=== PATIENT | female | born 1990 | race Caucasian/White ===

== ENCOUNTER → 2021-01-27 | Outpatient (CLI) | payer BC ==
[~2021-01-27] MED LIST: NORTREL OR; albuterol inhaler INH
--- NOTE | 2021-01-27 17:45 | REP ---
INDICATION: N63.10 LUMP OF R BREAST. Lump in the right breast, 8 o'clock position laterally, 3 cm from the nipple. Smooth mass 4 x 2 cm. COMPARISON: No comparison breast imaging.. TECHNIQUE: Targeted right breast ultrasound. Scanning is performed from 7:00 to 9:00. FINDINGS: Heterogeneous fibroglandular background echotexture is seen. No mass is observed. No cyst is seen. No acoustic shadowing noted. IMPRESSION: BI-RADS category 1-findings. Clinical follow-up is advised. <Electronically signed by Aj García > 01/27/21 [id number]
== END ==
LOC: M WHC 15:00
PROVIDERS: ATTEND Nurse Practitioner Women's Health
DX: N63.13 Unspecified lump in the right breast, lower outer quadrant (principal)

== ENCOUNTER → 2021-02-19 | Outpatient (REF) | payer BC, MEDICAID ==
[2021-02-19 18:35] LABS: HEMATOCRIT 39.8 % (36.0-47.0); HEMOGLOBIN 12.8 g/dl (12.0-15.5); MEAN CORPUSCULAR HEMOGLOBIN 27.3 pg (27.0-33.0); MEAN CORPUSCULAR HGB CONC 32.2 g/dl (32.0-36.5); MEAN CORPUSCULAR VOLUME 84.9 fl (80.0-96.0); PLATELET COUNT, AUTOMATED 324 10^3/uL (150-450); RED BLOOD COUNT 4.69 10^6/uL (4.00-5.40); WHITE BLOOD COUNT 11.4 10^3/uL (4.0-10.0)
[2021-02-19 21:36] LABS: CHLAMYDIA DNA AMPLIFICATION NEGATIVE (NEGATIVE); GC DNA AMPLIFICATION NEGATIVE (NEGATIVE)
[2021-02-22 15:33] LABS: HEPATITIS C VIRUS ABY INDEX 0.2 INDEX (<0.8); HIV 1&2 SCREEN CENTAUR NEGATIVE (NEGATIVE)
== END ==
LOC: M PLALAB 15:13
PROVIDERS: ATTEND Advanced Practice Midwife
DX: Z36.89 Encounter for other specified antenatal screening (principal); Z3A.08 8 weeks gestation of pregnancy

== ENCOUNTER → 2021-03-08 | Outpatient (CLI) | payer OTHER, MEDICAID | LOC: M PLALAB 13:20 | PROVIDERS: ATTEND Advanced Practice Midwife | DX: Z34.81 Encounter for supervision of other normal pregnancy, first trimester (principal) ==

== ENCOUNTER → 2021-04-27 | Outpatient (CLI) | payer OTHER ==
--- NOTE | 2021-04-27 18:44 | REP ---
INDICATION: PREG 18 WKS PREG ANATOMY. COMPARISON: None. TECHNIQUE: Real-time sonographic evaluation of the gravid uterus performed. FINDINGS: Estimated gestational age is18 weeks 0 days, EDC 09/28/2021. Today's measurements indicate appropriate growth. Presentation: Breech Placenta anterior, grade 0, without evidence of placenta previa. heart rate is recorded at 157 beats per minute. Amniotic fluid is subjectively normal. Closed cervical length is measured at 6.0 cm. Biometry chart: BPD: 39 mm, 18 weeks 0 days, 48th percentile. HC: 149 mm, 18 weeks 0 days, 49th percentile AC: 123 mm, 18 weeks 0 days, 49th percentile Femur length: 27 mm, 18 weeks 3 days, 59th percentile HC to AC ratio: 1.21, normal range 1.07-1.26. Estimated weight: 225g, 53rd percentile. anatomy: Cranium: Grossly normal Lateral Ventricles/Choroid Plexus: Grossly normal Posterior Fossa/Cerebellum: Grossly normal Nose/lips/profile: Not well seen due to position Four chamber heart: Grossly normal Right ventricular outflow tract: Grossly normal Left ventricular outflow tract: Not well seen due to position Left-sided stomach: Grossly normal Kidneys: Grossly normal Bladder: Grossly normal Cord Insertion: Grossly normal 3 vessel cord: Grossly normal Spine: Grossly normal IMPRESSION: Viable single intrauterine gestation as above. <Electronically signed by Jeremias Mahtis > 04/27/21 [id number]
== END ==
LOC: M RAD 16:44
PROVIDERS: ATTEND Advanced Practice Midwife
DX: Z36.9 Encounter for antenatal screening, unspecified (principal); Z3A.18 18 weeks gestation of pregnancy

== ENCOUNTER → 2021-05-31 | Outpatient (CLI) | payer OTHER ==
--- NOTE | 2021-05-31 16:29 | REP ---
INDICATION: F/U ANATOMY. COMPARISON: Comparison obstetric sonography April 27, 2021. This showed less than optimal nose and lips and left ventricular cardiac outflow tract visualization.. TECHNIQUE: Trans abdominal obstetric sonography. FINDINGS: Scanning through the gravid uterus demonstrates a viable single intrauterine gestation in transverse, head to the maternal left lie. motion is observed and heart rate is recorded at 153 beats per minute. A anterior placenta is seen, grade 1, without evidence of placenta previa. Closed cervical length is measured at 5.7 cm transabdominally. No extrauterine abnormality is observed. Amniotic fluid is subjectively normal. heart left ventricular outflow tract view and nose and lips are still less than optimally seen. spine is less than optimally seen. This due to position.. Biometry chart: BPD 5.1 cm, 21 weeks 3 days Head circumference 20.1 cm, 22 weeks 2 days Abdominal circumference 16.9 cm, 21 weeks 6 days Femur length 3.7 cm, 21 weeks 6 days Humeral length 3.7 cm, 22 weeks 6 days HC AC ratio normal 1.19 Cephalic index 0.68 (0.70-0.86) Estimated weight 460 g, 1 lb 0 oz, 9th percentile for 22 weeks 6 days IMPRESSION: Viable single intrauterine gestation at 22 weeks 1 days by today's composite sonographic criteria. DAT by today's sonography October 03, 2021.. No complication identified. Expected gestational age estimate based on DAT of 28 September 2021 is 22 weeks 6 days. anatomic survey is still less than complete. <Electronically signed by Aj García > 05/31/21 [id number]
== END ==
LOC: M WHC 14:31
PROVIDERS: ATTEND Advanced Practice Midwife
DX: Z36.9 Encounter for antenatal screening, unspecified (principal); Z3A.22 22 weeks gestation of pregnancy

== ENCOUNTER → 2021-06-09 | Outpatient (CLI) | payer OTHER | LOC: M PLALAB 12:39 | PROVIDERS: ATTEND Advanced Practice Midwife | DX: Z36.89 Encounter for other specified antenatal screening (principal); Z3A.20 20 weeks gestation of pregnancy ==

== ENCOUNTER → 2021-06-24 | Outpatient (CLI) | payer OTHER ==
--- NOTE | 2021-06-24 17:01 | REP ---
INDICATION: F/U ANATOMY. SPECIFICALLY FOLLOW-UP FOUR-CHAMBER HEART, LEFT VENTRICULAR OUTFLOW TRACT, UPPER LIP, AND SPINE COMPARISON: 05/31/2021 TECHNIQUE: Transabdominal scanning FINDINGS: Multiple ultrasonographic images of the gravid uterus shows a single living intrauterine gestation in the cephalic presentation. Doppler interrogation of the heart shows a heart rate of 147 beats per minute. The placenta is anterior and not low-lying. The cervix measures 5.7 cm in length and is closed. The subjective amniotic fluid volume is within normal limits. BPD: 6.2 cm 25 weeks 1 day HC: 24.0 cm 26 weeks 1 day AC: 21.8 cm 26 weeks 2 days FL: 4.8 cm 26 weeks 0 days The estimated weight is 891 g which is at the 30th percentile for a 26 week 2 day gestational age. Four-chamber heart, ventricular outflow tracts, upper lip, and spine still suboptimally visualized. IMPRESSION: Single living intrauterine gestation as described above with an estimated gestational age of 25 weeks 6 days via composite criteria and an estimated date of delivery of 10/01/2021 by today's exam. anatomical screen remains incomplete as described above. Follow-up is recommended. <Electronically signed by Mau Jimenez > 06/24/21 2009
== END ==
LOC: M WHC 10:58
PROVIDERS: ATTEND Obstetrics & Gynecology
DX: Z34.92 Encounter for supervision of normal pregnancy, unspecified, second trimester (principal)

== ENCOUNTER → 2021-07-05 | Outpatient (CLI) | payer OTHER ==
[2021-07-05 15:04] LABS: HEMATOCRIT 35.9 % (36.0-47.0); MEAN CORPUSCULAR HGB CONC 33.4 g/dl (32.0-36.5); MEAN CORPUSCULAR VOLUME 89.8 fl (80.0-96.0); PLATELET COUNT, AUTOMATED 265 10^3/uL (150-450); WHITE BLOOD COUNT 10.9 10^3/uL (4.0-10.0)
[2021-07-05 16:36] LABS: GC DNA AMPLIFICATION NEGATIVE (NEGATIVE)
== END ==
LOC: M PLALAB 12:05
PROVIDERS: ATTEND Obstetrics & Gynecology
DX: Z34.92 Encounter for supervision of normal pregnancy, unspecified, second trimester (principal); Z3A.00 Weeks of gestation of pregnancy not specified

== ENCOUNTER → 2021-07-22 | Outpatient (CLI) | payer OTHER ==
--- NOTE | 2021-07-22 14:27 | REP ---
INDICATION: REPEAT ANATOMY COMPARISON: 06/24/2021 TECHNIQUE: Transabdominal obstetrical ultrasound with color Doppler evaluation. FINDINGS: Examination demonstrates a single live intrauterine in cephalic presentation. motion is identified by technologist. Placenta is noted anterior and grade 1 without evidence for placenta previa or abruption. Cervix measures 5.4 cm in length and appears closed.. Selected gestational age: 30 weeks 2 days with DAT 09/28/2021. Gestational age by current measurements 29 weeks 4 days with DAT 10/03/2021. FHR equals 144 beats per minute. ELO: 7.8 cm (8.9-23.5) Estimated weight 1424 grams (18thpercentile). Umbilical artery SD ratio: 2.24 Anatomical assessment demonstrates normal structures including heart/left ventricular outflow tract, facial features and spine. Mild bilateral renal pelviectasis within normal range.. IMPRESSION: Single live intrauterine in cephalic presentation demonstrating appropriate estimated weight. The amniotic fluid volume is measured at below range, but technologist suggest this to be positional. Correlation and short-term follow-up may be warranted. <Electronically signed by Ladarius John > 07/22/21 [id number]
== END ==
LOC: M RAD 12:58
PROVIDERS: ATTEND Advanced Practice Midwife
DX: Z34.83 Encounter for supervision of other normal pregnancy, third trimester (principal)

== ENCOUNTER → 2021-08-31 | Outpatient (REF) | payer OTHER, MEDICAID | LOC: M SFHCWAGY 13:01 | PROVIDERS: ATTEND Specialist | DX: Z34.83 Encounter for supervision of other normal pregnancy, third trimester (principal) ==

== ENCOUNTER → 2021-09-16 | Outpatient (CLI) | payer OTHER, MEDICAID ==
[~2021-09-16] MED LIST changes: +D32000CA PO; +MULTTAB20 PO; +PROAAER10 INH
== END ==
LOC: M LABSMTC 09:58
PROVIDERS: ATTEND Anesthesiology
DX: Z01.818 Encounter for other preprocedural examination (principal); Z11.52 Encounter for screening for COVID-19

== ENCOUNTER 2021-09-21 05:32 | Inpatient (IN) | payer OTHER ==
[~2021-09-21] VITALS: Ht 170.2 cm; Wt 95.0 kg
[2021-09-21] VITALS (8 sets, daily range): BP systolic 117–137; BP diastolic 67–91
--- OUTSIDE RECORDS SUMMARY | 2021-09-21 05:35 | CCD ---
Author Organization Unknown Address [address] [place] [address] Phone [phone] Care Team Providers Care Traffic Court Referee Name Role Phone [facility] 110 [phone] Allergies Code Code System Name Reaction Severity Status Onset 3640 RxNorm Doxycycline Active Medications Name Status Start Date Stop Date albuterol sulfate HFA 90 mcg/actuation a erosol inhaler INHALE 2 PUFFS BY MOUTH EVERY 4 HOURS Active N ot available amoxicillin 500 mg capsule TAKE 1 CAPSULE BY MOUTH EVERY 8 HOURS Completed 0 05/07/2021 chlorhexidine gluconate 0.12 % mouthwash RINSE WITH 1 CAPFUL 3 TIMES DAILY STARTING TOMORROW Completed 05/07/2021 hydrocodone 5 mg-acetaminophen 325 mg ta blet TAKE 1 TABLET BY MOUTH EVERY 4 TO 6 HOURS NEEDED FOR PAIN . DO NOT EXCEED 5 PER 24 HOURS Completed 05/07/2021 ibuprofen 600 mg tablet TAKE 1 TABLET BY MOUTH 4 TIMES DAILY NEEDED Completed 05/07/2021 Active Not available Vitamin D3 50 mcg (2,000 unit) capsule TAKE 1 CAPSULE BY MOUTH ONCE DAILY Active Not available Problems Name Status Onset Date Source Vitamin D Deficiency Active 05/07/2021 Anxiety Active 05/07/2021 Seasonal Allergy Active 05/07/2021 Mild Intermittent Asthma Active 05/07/2021 Gastroesophageal Reflux Disease Active 05/07/2021 Cyst of Ovary Active 05/07/2021 Left Side Sciatica Active 05/07/2021 Generalized Anxiety Disorder Active 07/29/2021 Procedures Date Name Performed by Extraction of [place] Tooth Information n ot available Myringotomy and Insertion of Short-term Tympanic Ventilation Tube Information not available Excision of Cyst of Ovary Information no t available Results Lab Results Date Name Specimen Result Interpretation Description Value Range Status Address 06/25/2021 SARS CoV 2 RdRp Gene, QL Probe, Respiratory Spec imen Nasopharyngeal Normal Sars-cov-2 negative negative Final [facility]: [address] [facility] 06/09/2021 Vitamin D, 25-Hydroxy, Total, Serum Low Total 25(Oh) Vitamin D 26.6 NG/mL 30.0-100.0 NG/mL Final [facility] Ce nter: [address] [facility] Past Encounters 07/28/2021 Generalized Anxiety Disorder Kiara Lopez, [facility]: [address] [facility], [facility] [address], [place] [address], Ph. 07/19/2021 Generalized Anxiety Disorder Kiara Lopez, [facility]: [address] [facility], [facility] [address], [place] [address], Ph. 06/25/2021 Exposure to SARS-CoV-2 Nima Alegria MD: [address] [place] [address], Ph. 06/10/2021 Administration of SARS-CoV-2 Antigen Vaccine Nima Alegria MD: [address] [place] [phone], Ph. 05/19/2021 Administration of SARS-CoV-2 Antigen Vaccine Nima Alegria MD: [address] [place] [address], Ph. 05/07/2021 Patient New to Provider; Mild Intermittent Asthma; Vitamin D Deficiency; Anxiety; Kavita Chirinos MD: [address] [place] [phone], Ph. Social History Tobacco Smoking Status Never Smoker Vaccine List Vaccine Type COVID-19, mRNA, LNP-S, PF, 30 mcg/0.3 mL dose .3 mL 10.3 mL Tdap 01/29/2018 Plan of Care Reminders Provider Appointments None recorded. Lab None recorded. Referral None recorded. Procedures None recorded. Surgeries None recorded. Imaging None recorded. Vitals Height Weight BMI Blood Pressure 67 in 176 lbs 8 oz 27.6 kg/m2 124/76 mm[Hg]
--- OUTSIDE RECORDS SUMMARY | 2021-09-21 05:35 | CCD ---
Author Organization Unknown Address [address] [place] [address] Phone [phone] Care Team Providers Care Drafter Electrical Name Role Phone [facility] 110 [phone] Allergies Code Code System Name Reaction Severity [...] Procedures Date Name Performed by Extraction of [place] Tooth Information n ot available Myringotomy and Insertion of Short-term Tympanic Ventilation Tube Information not available Excision of Cyst of Ovary Information no t available Results Lab Results Date Name Specimen Result Interpretation Description Value Range Status Address 06/25/2021 SARS CoV 2 RdRp Gene, QL Probe, Respiratory Spec imen Nasopharyngeal Normal Sars-cov-[address] [facility]: [address] [facility] 06/09/2021 Vitamin D, 25-Hydroxy, Total, Serum Low Total 25(Oh) Vitamin D 26.6 NG/mL 30.0-100.0 NG/mL Final [facility] Ce nter: [address] [facility] Past Encounters 07/28/2021 Generalized Anxiety Disorder Kiara Lopez, [facility] [place] [facility]: [address] [facility], [facility] [address], [place] [address], Ph. 07/19/2021 Generalized Anxiety Disorder Kiara Lopez, [facility]: [address] [facility], [facility] [address], [place] [address], Ph. 06/25/2021 Exposure to SARS-CoV-2 Nima Alegria MD: [address] [place] [address], Ph. 06/10/2021 Administration of SARS-CoV-2 Antigen Vaccine Nima Alegria MD: [address] [place] [phone], Ph. 05/19/2021 Administration of SARS-CoV-2 Antigen Vaccine Nima Alegria MD: [address] [place] [address], Ph. 05/07/2021 Patient New to Provider; Mild Intermittent Asthma; Vitamin D Deficiency; Anxiety; Kavita Chirinos MD: [address] [place] [phone], Ph. Social History Tobacco Smoking Status Never [...]
--- OUTSIDE RECORDS SUMMARY | 2021-09-21 05:35 | CCD ---
Author Organization Unknown Address [address] [place] [address] Phone [phone] Care Team Providers Care Mastercam Programmer Name Role Phone [facility] 110 [phone] Allergies Code Code System Name Reaction Severity [...] Active 05/07/2021 Generalized Anxiety Disorder Active 07/29/2021 Depressive Disorder Active 08/23/2021 Procedures Date Name Performed by Extraction of [place] Tooth Information n ot available Myringotomy and Insertion of Short-term Tympanic Ventilation Tube Information not available Excision of Cyst of Ovary Information no t available Results Lab Results Date Name Specimen Result Interpretation Description Value Range Status Address 06/25/2021 SARS CoV 2 RdRp Gene, QL Probe, Respiratory Spec imen Nasopharyngeal Normal Sars-cov-2 negative negative Final [facility]: [address] [facility] 06/09/2021 Vitamin D, 25-Hydroxy, Total, Serum Low Total 25(Oh) Vitamin D 26.6 NG/mL 30.0-100.0 NG/mL Final [facility] Ce nter: [address] [facility] Past Encounters 08/23/2021 Generalized Anxiety Disorder; Depressive Disorder Kiara Lopez, [facility]: [address] [facility], [facility] [address], [place] [address], Ph. 07/28/2021 Generalized Anxiety Disorder Kiara Lopez [facility]: [address] [facility], [facility] [address], [place] [address], Ph. 07/19/2021 [facility] [address] [facility], [facility] [address], [place] [address], Ph. 06/25/2021 Exposure to SARS-CoV-2 Nima Alegria MD: [address] [place] [phone], Ph. 06/10/2021 Administration of SARS-CoV-2 Antigen Vaccine Nima Alegria MD: [address] [place] [phone], Ph. 05/19/2021 Administration of SARS-CoV-2 Antigen Vaccine Nima Alegria MD: [address] [place] [phone], Ph. 05/07/2021 Patient New to Provider; Mild Intermittent Asthma; Vitamin D Deficiency; Anxiety; Kavita Chirinos MD: [address] [place] [phone], Ph. Social History Tobacco Smoking Status Never Smoker Vaccine List Vaccine Type COVID-19, mRNA, LNP-S, PF, 30 mcg/0.3 mL dose .3 mL .3 mL Tdap 01/29/2018 Plan of Care Reminders Provider Appointments None recorded. Lab None recorded. Referral None recorded. Procedures None recorded. Surgeries None recorded. Imaging None recorded. Vitals Height Weight BMI Blood Pressure 67 in 176 lbs 8 oz 27.6 kg/m2 124/76 mm[Hg]
--- OUTSIDE RECORDS SUMMARY | 2021-09-21 05:35 | CCD ---
Author Organization Unknown Address [address] [place] [address] Phone [phone] Care Team Providers Care Senior Qa Automation Engineer Name Role Phone [facility] 110 [phone] Allergies Code Code System Name Reaction [...] Procedures Date Name Performed by Extraction of [place] Tooth Information n ot available Myringotomy and Insertion of Short-term Tympanic Ventilation Tube Information not available Excision of Cyst of Ovary Information no t available Results Lab Results Date Name Specimen Result Interpretation Description Value Range Status Address 06/25/2021 SARS CoV 2 RdRp Gene, QL Probe, Respiratory Spec imen Nasopharyngeal Normal Sars-cov-2 negative negative Final [facility]: [address] [facility] 06/09/2021 Vitamin D, 25-Hydroxy, Total, Serum Low Total 25(Oh) Vitamin D 26.6 NG/mL 30.0-100.0 NG/mL Final [facility] Ce nter: [address] [facility] Past Encounters 09/07/2021 [facility]; [facility] [address] [facility], [facility] [address], [place] [address], Ph. 08/23/2021 Generalized Anxiety Disorder; [facility] [address] [facility], [facility] [address], [place] [address], Ph. 07/28/2021 [facility] [address] [facility], [facility] [address], [place] [address], Ph. 07/19/2021 [facility] [address] [facility], [facility] [address], [place] [address], Ph. 06/25/2021 Exposure to SARS-CoV-2 Nima Alegria MD: [address] [place] [phone], Ph. 06/10/2021 Administration of SARS-CoV-2 Antigen Vaccine Nima Alegria MD: [address] [place] [phone], Ph. 05/19/2021 Administration of SARS-CoV-2 Antigen Vaccine Nima Alegria MD: [address] [place] [phone], Ph. 05/07/2021 Patient New to Provider; Mild Intermittent Asthma; Vitamin D Deficiency; Anxiety; Kavita Chirinos MD: [address] [place] [phone], Ph. Social History Tobacco Smoking Status Never [...]
--- OUTSIDE RECORDS SUMMARY | 2021-09-21 05:35 | CCD ---
Author Organization Unknown Address [address] [place] [address] Phone [phone] Care Team Providers Care Stem Roller Name Role Phone [facility] 110 [phone] Allergies Code Code System Name Reaction Severity [...] Procedures Date Name Performed by Extraction of [place] Tooth Information n ot available Myringotomy and Insertion of Short-term Tympanic Ventilation Tube Information not available Excision of Cyst of Ovary Information no t available Results Lab Results Date Name Specimen Result Interpretation Description Value Range Status Address 06/25/2021 SARS CoV 2 RdRp Gene, QL Probe, Respiratory Spec imen Nasopharyngeal Normal Sars-cov-2 negative negative Final [facility]: [address] [facility] 06/09/2021 Vitamin D, 25-Hydroxy, Total, Serum Low Total 25(Oh) Vitamin D 26.6 NG/mL 30.0-100.0 NG/mL Final [facility] Ce nter: [address] [facility] Past Encounters 07/28/2021 Generalized Anxiety Disorder Kiara Lopez, [facility]: [address] [facility], [facility] [address], [place] [address], Ph. 07/19/2021 Generalized Anxiety Disorder Kiara Lopez, [facility]: [address] [facility], [facility] [address], [place] [address], Ph. 06/25/2021 Exposure to SARS-CoV-2 Nima Alegria MD: [address] [place] [address], Ph. 06/10/2021 Administration of SARS-CoV-2 Antigen Vaccine Nima Alegria MD: [address] [place] [phone], Ph. 05/19/2021 Administration of SARS-CoV-2 Antigen Vaccine Nima Alegria MD: [address] [place] [address], Ph. 05/07/2021 Patient New to Provider; Mild Intermittent Asthma; Vitamin D Deficiency; Anxiety; Kavita Chirinos MD: [address] [place] [phone], Ph. Social History Tobacco Smoking Status Never [...]
--- OUTSIDE RECORDS SUMMARY | 2021-09-21 05:36 | CCD ---
Author Author [facility] Organization [facility] Address Unknown Phone Unavailable Care Team Providers Care Asset Protection Agent Name Role Phone Kristan Alegria MD Unavailable Unavailable Kristan Alegria MD Unavailable Unavailable Kristan Alegria MD Unavailable Unavailable Kristan Alegria MD Unavailable Unavailable Kristan Alegria MD Unavailable Unavailable Kristan Alegria MD Unavailable Unavailable Kristan Alegria MD Unavailable Unavailable Kristan Alegria MD Unavailable Unavailable Kristan Alegria MD Unavailable Unavailable Kristan Alegria MD Unavailable Unavailable Kristan Alegria MD Unavailable Unavailable Kristan Alegria MD Unavailable Unavailable Kristan Alegria MD Unavailable Unavailable Kristan Alegria MD Unavailable Unavailable Kristan Alegria MD Unavailable Unavailable Kristan Alegria MD Unavailable Unavailable Kristan Alegria MD Unavailable Unavailable Kristan Alegria MD Unavailable Unavailable Kristan Alegria MD Unavailable Unavailable Kristan Alegria MD Unavailable Unavailable Kristan Alegria MD Unavailable Unavailable Kristan Alegria MD Unavailable Unavailable Kristan Alegria MD Unavailable Unavailable Kristan Alegria MD Unavailable Unavailable Kristan Alegria MD Unavailable Unavailable Kristan Alegria MD Unavailable Unavailable Kristan Alegria MD Unavailable Unavailable Kristan Alegria MD Unavailable Unavailable Kristan Alegria MD Unavailable Unavailable Kristan Alegria MD Unavailable Unavailable Kristan Alegria MD Unavailable Unavailable Kristan Alegria MD Unavailable Unavailable Kristan Alegria MD Unavailable Unavailable Kristan Alegria MD Unavailable Unavailable Kristan Alegria MD Unavailable Unavailable Kristan Alegria MD Unavailable Unavailable Kristan Alegria MD Unavailable Unavailable Kristan Alegria MD Unavailable Unavailable Kristan Alegria MD Unavailable Unavailable Kristan Alegria MD Unavailable Unavailable Kristan Alegria MD Unavailable Unavailable Kristan Alegria MD Unavailable Unavailable AlegriaKristan MD Unavailable Unavailable AlegriaKristan MD Unavailable Unavailable AlegriaKristan MD Unavailable Unavailable Alegria, Kristan Herring MD Unavailable Unavailable AlegriaKristan MD Unavailable Unavailable AlegriaKristan MD Unavailable Unavailable AlegriaKristan MD Unavailable Unavailable Kristan Alegria MD Unavailable Unavailable Kristan Alegria MD Unavailable Unavailable AlegriaKristan MD Unavailable Unavailable AlegriaKristan MD Unavailable Unavailable AlegriaKristan MD Unavailable Unavailable Alegria, Kristan Herring MD Unavailable Unavailable AlegriaKristan MD Unavailable Unavailable Alegria, Kristan Herring MD Unavailable Unavailable AlegriaKristan MD Unavailable Unavailable AlegriaKristan MD Unavailable Unavailable Kristan Alegria MD Unavailable Unavailable AlegriaKristan MD Unavailable Unavailable AlegriaKristan MD Unavailable Unavailable Alegria, Kristan Herring MD Unavailable Unavailable Alegria, Kristan Herring MD Unavailable Unavailable AlegriaKristan MD Unavailable Unavailable Alegria, Kristan Herring MD Unavailable Unavailable Kristan Alegria MD Unavailable Unavailable Kristan Alegria MD Unavailable Unavailable Kristan Alegria MD Unavailable Unavailable Kristan Alegria MD Unavailable Unavailable AlegriaKristan MD Unavailable Unavailable AlegriaKristan MD Unavailable Unavailable AlegriaKristan MD Unavailable Unavailable AlegriaKristan MD Unavailable Unavailable AlegriaKristan MD Unavailable Unavailable Kristan Alegria MD Unavailable Unavailable Kristan Alegria MD Unavailable Unavailable Kristan Alegria MD Unavailable Unavailable Kristan Alegria MD Unavailable Unavailable AlegriaKristan MD Unavailable Unavailable AlegriaKristan MD Unavailable Unavailable Kristan Alegria MD Unavailable Unavailable Kristan Alegria MD Unavailable Unavailable Kristan Alegria MD Unavailable Unavailable Kristan Alegria MD Unavailable Unavailable Kristan Alegria MD Unavailable Unavailable Kristan Alegria MD Unavailable Unavailable AlegriaKristan MD Unavailable Unavailable AlegriaKristan MD Unavailable Unavailable AlegriaKristan MD Unavailable Unavailable AlegriaKristan MD Unavailable Unavailable Kristan Alegria MD Unavailable Unavailable Kristan Alegria MD Unavailable Unavailable Kiara Lopez Unavailable [phone] Candis, Reina Unavailable Unavailable Candis, Reina Unavailable Unavailable Candis, Reina Unavailable Unavailable Candis, Reina Unavailable Unavailable Candis, Reina Unavailable Unavailable Candis, Reina Unavailable Unavailable Candis, Reina Unavailable Unavailable Candis, Reina Unavailable Unavailable Candis, Reina Unavailable Unavailable Candis, Reina Unavailable Unavailable Candis, Reina Unavailable Unavailable Candis, Reina Unavailable Unavailable Candis, Reina Unavailable Unavailable Candis, Reina Unavailable Unavailable Candis, Reina Unavailable Unavailable Candis, Reina Unavailable Unavailable Candis, Reina Unavailable Unavailable Candis, Reina Unavailable Unavailable Candis, Reina Unavailable Unavailable Candis, Reina Unavailable Unavailable Candis, Reina Unavailable Unavailable Candis, Reina Unavailable Unavailable Candis, Reina Unavailable Unavailable Candis, Reina Unavailable Unavailable Candis, Reina Unavailable Unavailable Candis, Reina Unavailable Unavailable Re-disclosure Warning The records that you are about to access may contain information from federally-assisted alcohol or drug abuse programs. If such information is present, then the following federally mandated warning applies: This information has been disclosed to you from records protected by federal confidentiality rules (42 CFR part 2). The federal rules prohibit you from making any further disclosure of this information unless further disclosure is expressly permitted by the written consent of the person to whom it pertains or as otherwise permitted by 42 CFR part 2. A general authorization for the release of medical or other information is NOT sufficient for this purpose. The Federal rules restrict any use of the information to criminally investigate or prosecute any alcohol or drug abuse patient.The records that you are about to access may contain highly sensitive health information, the redisclosure of which is protected by Article 27-F of the [facility] Public Health law. If you continue you may have access to information: Regarding HIV / AIDS; Provided by facilities licensed or operated by the [facility] Office of Mental Health; or Provided by the [facility] Office for People With Developmental Disabilities. If such information is present, then the following [facility] mandated warning applies: This information has been disclosed to you from confidential records which are protected by state law. State law prohibits you from making any further disclosure of this information without the specific written consent of the person to whom it pertains, or as otherwise permitted by law. Any unauthorized further disclosure in violation of state law may result in a fine or mcc sentence or both. A general authorization for the release of medical or other information is NOT sufficient authorization for further disc losure. Allergies and Adverse Reactions Type Description Substance Reaction Status Data Source(s ) Propensity to adverse reactions NO KNOWN ALLERGIES NO KNOWN ALLERGIES [facility] Family History Family Member Name Family Member Gender Family Member Status Date o f Status Description Data Source(s) Unknown Unknown Problem [facility] ([facility] Encounters Encounter Providers Location Date Indications Data Source(s ) Kiara Lopez [facility]: [address], [place] [address], Ph. Attender: Kiara Lopez [facility] Medical 09/07/2021 12:00:00 AM EDT [place] ([facility]) Kiara Lopez [facility]: [address], [place] [address], Ph. Attender: Kiara Lopez [facility] Medical 08/23/2021 12:00:00 AM EDT [place] ([facility]) Kiara Lopez [facility]: [address], [place] [address], Ph. Attender: Kiara Lopez [facility] Medical 08/23/2021 12:00:00 AM EDT [place] ([facility]) Kiara Lopez [facility]: [address], [place] [address], Ph. Attender: Kiara Lopez [facility] Medical 07/28/2021 12:00:00 AM EDT [place] ([facility]) Kiara Lopez LMS[facility]: [address], [place] [address], Ph. Attender: Kiara Lopez [facility] Medical 07/28/2021 12:00:00 AM EDT [place] ([facility]) Kiara Lopez [facility]: [address], [place] [address], Ph. Attender: Kiara Lopez [facility] Medical 07/28/2021 12:00:00 AM EDT [place] ([facility]) Kiara Lopez, [facility]: [address], [place] [address], Ph. Attender: Kiara Lopez [facility] Medical 07/28/2021 12:00:00 AM EDT [place] ([facility]) Kiara Lopez [employer] [employer]: [address], [place] [address], Ph. Attender: Kiara Lopez [facility] Medical 07/28/2021 12:00:00 AM EDT [place] ([facility]) Kiara Lopez, [facility]: [address], [place] [address], Ph. Attender: Kiara Lopez [facility] Medical 07/19/2021 12:00:00 AM EDT [place] ([facility]) Kiara Lopez, [facility]: [address], [place] [address], Ph. Attender: Kiara Lopez [facility] Medical 07/19/2021 12:00:00 AM EDT [place] ([facility]) Kiara Lopez [facility]: [address], [place] [address], Ph. Attender: Kiara Lopez [facility] Medical 07/19/2021 12:00:00 AM EDT [place] ([facility]) Kiara Lopez, [facility]: [address], [place] [address], Ph. Attender: Kiara Lopez [facility] Medical 07/19/2021 12:00:00 AM EDT [place] ([facility]) Kiara Lopez, [facility]: [address], [place] [address], Ph. Attender: Kiara Lopez [facility] Medical 07/19/2021 12:00:00 AM EDT [place] ([facility]) Nima Alegria MD: [address] [place] [address], Ph. Attender: Nima Alegria MD [facility] Medical 06/25/2021 12:00:00 AM EDT [place] ([facility]) Nima Alegria MD: [address] [place] [address], Ph. Attender: Nima Alegria MD [facility] Medical 06/25/2021 12:00:00 AM EDT [place] ([facility]) Nima Alegria MD: [address] [place] [address], Ph. Attender: Nima Alegria MD [facility] Medical 06/25/2021 12:00:00 AM EDT [place] ([facility]) Nima Alegria MD: [address] [place] [address], Ph. Attender: Nima Alegria MD [facility] Medical 06/25/2021 12:00:00 AM EDT [place] ([facility]) Nima Alegria MD: [address] [place] [address], Ph. Attender: Nima Alegria MD [facility] Medical 06/25/2021 12:00:00 AM EDT [place] ([facility]) Nima Alegria MD: [address] [place] [address], Ph. Attender: Nima Alegria MD [facility] Medical 06/10/2021 12:00:00 AM EDT [place] ([facility]) Nima Alegria MD: [address] [place] [address], Ph. Attender: Nima Alegria MD [facility] Medical 06/10/2021 12:00:00 AM EDT [place] ([facility]) Nima Alegria MD: [address] [place] [address], Ph. Attender: Nima Alegria MD [facility] Medical 06/10/2021 12:00:00 AM EDT [place] ([facility]) Nima Alegria MD: [address] [place] [address], Ph. Attender: Nima Alegria MD [facility] Medical 06/10/2021 12:00:00 AM EDT [place] ([facility]) Nima Alegria MD: [address] [place] [address], Ph. Attender: Nima Alegria MD [facility] Medical 06/10/2021 12:00:00 AM EDT [place] ([facility]) Nima Alegria MD: [address] [place] [address], Ph. Attender: Nima Alegria MD [facility] Medical 05/19/2021 12:00:00 AM EDT [place] ([facility]) Nima Alegria MD: [address] [place] [address], Ph. Attender: Nima Alegria MD [facility] Medical 05/19/2021 12:00:00 AM EDT [place] ([facility]) Nima Alegria MD: [address] [place] [address], Ph. Attender: Nima Alegria MD [facility] Medical 05/19/2021 12:00:00 AM EDT [place] ([facility]) Nima Alegria MD: [address] [place] [address], Ph. Attender: Nima Alegria MD [facility] Medical 05/19/2021 12:00:00 AM EDT [place] ([facility]) Nima Alegria MD: [address] [place] [address], Ph. Attender: Nima Alegria MD [facility] Medical 05/19/2021 12:00:00 AM EDT [place] ([facility]) Nima Alegria MD: [address] [place] [address], Ph. Attender: Nima Alegria MD [facility] Medical 05/19/2021 12:00:00 AM EDT [place] ([facility]) Kavita Chirinos MD: [address], [place] [address], Ph. Attender: Kavita Chirinos [facility] Medical 05/07/2021 12:00:00 AM EDT [place] ([facility]) Kavita Chirinos MD: [address], [place] [address], Ph. Attender: Kavita Chirinos [facility] Medical 05/07/2021 12:00:00 AM EDT [place] ([facility]) Kavita Chirinos MD: [address], [place] [address], Ph. Attender: Kavita Chirinos [facility] Medical 05/07/2021 12:00:00 AM EDT [facility]) Kavita Chirinos MD: [address], [place] [address], Ph. Attender: Kavita Chirinos [facility] Medical 05/07/2021 12:00:00 AM EDT [facility]) Kavita Chirinos MD: [address], [place] [address], Ph. Attender: Kavita Chirinos [facility] Medical 05/07/2021 12:00:00 AM EDT [facility]) Kavita Chirinos MD: [address], [place] [address], Ph. Attender: Kavita Chirinos [facility] Medical 05/07/2021 12:00:00 AM EDT [facility]) Kavita Chirinos MD: [address], [place] [address], Ph. Attender: Kavita Chirinos [facility] Medical 05/07/2021 12:00:00 AM EDT [facility]) Immunizations Vaccine Date Status Description Data Source(s) COVID-19, mRNA, LNP-S, PF, 30 mcg/0.3 mL dose 06/10/2021 01: 44:25 PM EDT completed .3 mL [place] ([facility]) COVID-19, mRNA, LNP-S, PF, 30 mcg/0.3 mL dose 06/10/2021 01: 44:25 PM EDT completed .3 mL [place] ([facility]) COVID-19, mRNA, LNP-S, PF, 30 mcg/0.3 mL dose 06/10/2021 01: 44:25 PM EDT completed .3 mL [place] ([facility]) COVID-19, mRNA, LNP-S, PF, 30 mcg/0.3 mL dose 06/10/2021 01: 44:25 PM EDT completed .3 mL [place] ([facility]) COVID-19, mRNA, LNP-S, PF, 30 mcg/0.3 mL dose 06/10/2021 01: 44:25 PM EDT completed .3 mL [place] ([facility]) COVID-19, mRNA, LNP-S, PF, 30 mcg/0.3 mL dose 05/19/2021 11: 35:59 AM EDT completed .3 mL [place] ([facility]) COVID-19, mRNA, LNP-S, PF, 30 mcg/0.3 mL dose 05/19/2021 11: 35:59 AM EDT completed .3 mL [place] ([facility]) COVID-19, mRNA, LNP-S, PF, 30 mcg/0.3 mL dose 05/19/2021 11: 35:59 AM EDT completed .3 mL [place] ([facility]) COVID-19, mRNA, LNP-S, PF, 30 mcg/0.3 mL dose 05/19/2021 11: 35:59 AM EDT completed .3 mL [place] ([facility]) COVID-19, mRNA, LNP-S, PF, 30 mcg/0.3 mL dose 05/19/2021 11: 35:59 AM EDT completed .3 mL [place] ([facility]) COVID-19, mRNA, LNP-S, PF, 30 mcg/0.3 mL dose 05/19/2021 11: 35:59 AM EDT completed .3 mL [place] ([facility]) Medications Medication Brand Name Start Date Product Form Dose Route Admi nistrative Instructions Pharmacy Instructions Status Indications Reaction Description Data Source(s) chlorhexidine gluconate 1.2 MG/ML Mouthw johann chlorhexidine gluconate 0.12 % mouthwash RINSE WITH 1 CAPFUL 3 TIMES DAILY STARTING TOMORROW chlorhexidine gluconate 0.12 % mouthwash RINSE WITH 1 CAPFUL 3 TIMES DAILY STARTING TOMORROW completed chlorhexidine gluconate 1.2 MG/ML Mouthwash [place] ([facility]) Acetaminophen 325 MG / Hydrocodone Mayito trate 5 MG Oral Tablet hydrocodone 5 mg- acetaminophen 325 mg tablet TAKE 1 TABLET BY MOUTH EVERY 4 TO 6 HOURS NEEDED FOR PAIN . DO NOT EXCEED 5 PER 24 HOURS hydrocodone 5 mg-acetaminophen 325 mg tablet TAKE 1 TABLET BY MOUTH EVERY 4 TO 6 HOURS NEEDED FOR PAIN . DO NOT EXCEED 5 PER 24 HOURS completed acetaminophen 325 MG / hydrocodone bitartrate 5 MG Oral Tablet [place] ([facility]) chlorhexidine gluconate 1.2 MG/ML Mouthw johann chlorhexidine gluconate 0.12 % mouthwash RINSE WITH 1 CAPFUL 3 TIMES DAILY STARTING TOMORROW chlorhexidine gluconate 0.12 % mouthwash RINSE WITH 1 CAPFUL 3 TIMES DAILY STARTING TOMORROW completed chlorhexidine gluconate 1.2 MG/ML Mouthwash [place] ([facility]) Amoxicillin 500 MG Oral Capsule amoxicil fredis 500 mg capsule TAKE 1 CAPSULE BY MOUTH EVERY 8 HOURS amoxicillin 500 mg capsule TAKE 1 CAPSUL E BY MOUTH EVERY 8 HOURS completed amoxicillin 500 MG Oral Capsule [place] ([facility]) Acetaminophen 325 MG / Hydrocodone Mayito trate 5 MG Oral Tablet hydrocodone 5 mg- acetaminophen 325 mg tablet TAKE 1 TABLET BY MOUTH EVERY 4 TO 6 HOURS NEEDED FOR PAIN . DO NOT EXCEED 5 PER 24 HOURS hydrocodone 5 mg-acetaminophen 325 mg tablet TAKE 1 TABLET BY MOUTH EVERY 4 TO 6 HOURS NEEDED FOR PAIN . DO NOT EXCEED 5 PER 24 HOURS completed acetaminophen 325 MG / hydrocodone bitartrate 5 MG Oral Tablet [place] ([facility]) Ibuprofen 600 MG Oral Tablet ibuprofen 6 00 mg tablet TAKE 1 TABLET BY MOUTH 4 TIMES DAILY NEEDED ibuprofen 600 mg tablet TAKE 1 TABLET BY MOUTH 4 TIMES DAILY NEEDED completed ibupro fen 600 MG Oral Tablet [place] ([facility]) chlorhexidine gluconate 1.2 MG/ML Mouthw johann chlorhexidine gluconate 0.12 % mouthwash RINSE WITH 1 CAPFUL 3 TIMES DAILY STARTING TOMORROW chlorhexidine gluconate 0.12 % mouthwash RINSE WITH 1 CAPFUL 3 TIMES DAILY STARTING TOMORROW completed chlorhexidine gluconate 1.2 MG/ML Mouthwash [place] ([facility]) Amoxicillin 500 MG Oral Capsule amoxicil fredis 500 mg capsule TAKE 1 CAPSULE BY MOUTH EVERY 8 HOURS amoxicillin 500 mg capsule TAKE 1 CAPSUL E BY MOUTH EVERY 8 HOURS completed amoxicillin 500 MG Oral Capsule [place] ([facility]) Amoxicillin 500 MG Oral Capsule amoxicil fredis 500 mg capsule TAKE 1 CAPSULE BY MOUTH EVERY 8 HOURS amoxicillin 500 mg capsule TAKE 1 CAPSUL E BY MOUTH EVERY 8 HOURS completed amoxicillin 500 MG Oral Capsule [place] ([facility]) chlorhexidine gluconate 1.2 MG/ML Mouthw johann chlorhexidine gluconate 0.12 % mouthwash RINSE WITH 1 CAPFUL 3 TIMES DAILY STARTING TOMORROW chlorhexidine gluconate 0.12 % mouthwash RINSE WITH 1 CAPFUL 3 TIMES DAILY STARTING TOMORROW completed chlorhexidine gluconate 1.2 MG/ML Mouthwash [place] ([facility]) Acetaminophen 325 MG / Hydrocodone Mayito trate 5 MG Oral Tablet hydrocodone 5 mg- acetaminophen 325 mg tablet TAKE 1 TABLET BY MOUTH EVERY 4 TO 6 HOURS NEEDED FOR PAIN . DO NOT EXCEED 5 PER 24 HOURS hydrocodone 5 mg-acetaminophen 325 mg tablet TAKE 1 TABLET BY MOUTH EVERY 4 TO 6 HOURS NEEDED FOR PAIN . DO NOT EXCEED 5 PER 24 HOURS completed acetaminophen 325 MG / hydrocodone bitartrate 5 MG Oral Tablet [place] ([facility]) chlorhexidine gluconate 1.2 MG/ML Mouthw johann chlorhexidine gluconate 0.12 % mouthwash RINSE WITH 1 CAPFUL 3 TIMES DAILY STARTING TOMORROW chlorhexidine gluconate 0.12 % mouthwash RINSE WITH 1 CAPFUL 3 TIMES DAILY STARTING TOMORROW completed chlorhexidine gluconate 1.2 MG/ML Mouthwash [place] ([facility]) Ibuprofen 600 MG Oral Tablet ibuprofen 6 00 mg tablet TAKE 1 TABLET BY MOUTH 4 TIMES DAILY NEEDED ibuprofen 600 mg tablet TAKE 1 TABLET BY MOUTH 4 TIMES DAILY NEEDED completed ibupro fen 600 MG Oral Tablet [place] ([facility]) Ibuprofen 600 MG Oral Tablet ibuprofen 6 00 mg tablet TAKE 1 TABLET BY MOUTH 4 TIMES DAILY NEEDED ibuprofen 600 mg tablet TAKE 1 TABLET BY MOUTH 4 TIMES DAILY NEEDED completed ibupro fen 600 MG Oral Tablet [place] ([facility]) Ibuprofen 600 MG Oral Tablet ibuprofen 6 00 mg tablet TAKE 1 TABLET BY MOUTH 4 TIMES DAILY NEEDED ibuprofen 600 mg tablet TAKE 1 TABLET BY MOUTH 4 TIMES DAILY NEEDED completed ibupro fen 600 MG Oral Tablet [place] ([facility]) Amoxicillin 500 MG Oral Capsule amoxicil fredis 500 mg capsule TAKE 1 CAPSULE BY MOUTH EVERY 8 HOURS amoxicillin 500 mg capsule TAKE 1 CAPSUL E BY MOUTH EVERY 8 HOURS completed amoxicillin 500 MG Oral Capsule [place] ([facility]) chlorhexidine gluconate 1.2 MG/ML Mouthw johann chlorhexidine gluconate 0.12 % mouthwash RINSE WITH 1 CAPFUL 3 TIMES DAILY STARTING TOMORROW chlorhexidine gluconate 0.12 % mouthwash RINSE WITH 1 CAPFUL 3 TIMES DAILY STARTING TOMORROW completed chlorhexidine gluconate 1.2 MG/ML Mouthwash [place] ([facility]) Amoxicillin 500 MG Oral Capsule amoxicil fredis 500 mg capsule TAKE 1 CAPSULE BY MOUTH EVERY 8 HOURS amoxicillin 500 mg capsule TAKE 1 CAPSUL E BY MOUTH EVERY 8 HOURS completed amoxicillin 500 MG Oral Capsule [place] ([facility]) Acetaminophen 325 MG / Hydrocodone Mayito trate 5 MG Oral Tablet hydrocodone 5 mg- acetaminophen 325 mg tablet TAKE 1 TABLET BY MOUTH EVERY 4 TO 6 HOURS NEEDED FOR PAIN . DO NOT EXCEED 5 PER 24 HOURS hydrocodone 5 mg-acetaminophen 325 mg tablet TAKE 1 TABLET BY MOUTH EVERY 4 TO 6 HOURS NEEDED FOR PAIN . DO NOT EXCEED 5 PER 24 HOURS completed acetaminophen 325 MG / hydrocodone bitartrate 5 MG Oral Tablet [place] ([facility]) Ibuprofen 600 MG Oral Tablet ibuprofen 6 00 mg tablet TAKE 1 TABLET BY MOUTH 4 TIMES DAILY NEEDED ibuprofen 600 mg tablet TAKE 1 TABLET BY MOUTH 4 TIMES DAILY NEEDED completed ibupro fen 600 MG Oral Tablet [place] ([facility]) Acetaminophen 325 MG / Hydrocodone Mayito trate 5 MG Oral Tablet hydrocodone 5 mg- acetaminophen 325 mg tablet TAKE 1 TABLET BY MOUTH EVERY 4 TO 6 HOURS NEEDED FOR PAIN . DO NOT EXCEED 5 PER 24 HOURS hydrocodone 5 mg-acetaminophen 325 mg tablet TAKE 1 TABLET BY MOUTH EVERY 4 TO 6 HOURS NEEDED FOR PAIN . DO NOT EXCEED 5 PER 24 HOURS completed acetaminophen 325 MG / hydrocodone bitartrate 5 MG Oral Tablet [facility] ([facility]) Acetaminophen 325 MG / Hydrocodone Mayito trate 5 MG Oral Tablet hydrocodone 5 mg- acetaminophen 325 mg tablet TAKE 1 TABLET BY MOUTH EVERY 4 TO 6 HOURS NEEDED FOR PAIN . DO NOT EXCEED 5 PER 24 HOURS hydrocodone 5 mg-acetaminophen 325 mg tablet TAKE 1 TABLET BY MOUTH EVERY 4 TO 6 HOURS NEEDED FOR PAIN . DO NOT EXCEED 5 PER 24 HOURS completed acetaminophen 325 MG / hydrocodone bitartrate 5 MG Oral Tablet [place] ([facility]) chlorhexidine gluconate 1.2 MG/ML Mouthw johann chlorhexidine gluconate 0.12 % mouthwash RINSE WITH 1 CAPFUL 3 TIMES DAILY STARTING TOMORROW chlorhexidine gluconate 0.12 % mouthwash RINSE WITH 1 CAPFUL 3 TIMES DAILY STARTING TOMORROW completed chlorhexidine gluconate 1.2 MG/ML Mouthwash [facility] ([facility]) Acetaminophen 325 MG / Hydrocodone Mayito trate 5 MG Oral Tablet hydrocodone 5 mg- acetaminophen 325 mg tablet TAKE 1 TABLET BY MOUTH EVERY 4 TO 6 HOURS NEEDED FOR PAIN . DO NOT EXCEED 5 PER 24 HOURS hydrocodone 5 mg-acetaminophen 325 mg tablet TAKE 1 TABLET BY MOUTH EVERY 4 TO 6 HOURS NEEDED FOR PAIN . DO NOT EXCEED 5 PER 24 HOURS completed acetaminophen 325 MG / hydrocodone bitartrate 5 MG Oral Tablet [facility] ([facility]) Ibuprofen 600 MG Oral Tablet ibuprofen 6 00 mg tablet TAKE 1 TABLET BY MOUTH 4 TIMES DAILY NEEDED ibuprofen 600 mg tablet TAKE 1 TABLET BY MOUTH 4 TIMES DAILY NEEDED completed ibupro fen 600 MG Oral Tablet [place] ([facility]) Amoxicillin 500 MG Oral Capsule amoxicil fredis 500 mg capsule TAKE 1 CAPSULE BY MOUTH EVERY 8 HOURS amoxicillin 500 mg capsule TAKE 1 CAPSUL E BY MOUTH EVERY 8 HOURS completed amoxicillin 500 MG Oral Capsule [facility] ([facility]) Amoxicillin 500 MG Oral Capsule amoxicil fredis 500 mg capsule TAKE 1 CAPSULE BY MOUTH EVERY 8 HOURS amoxicillin 500 mg capsule TAKE 1 CAPSUL E BY MOUTH EVERY 8 HOURS completed amoxicillin 500 MG Oral Capsule [place] ([facility]) Ibuprofen 600 MG Oral Tablet ibuprofen 6 00 mg tablet TAKE 1 TABLET BY MOUTH 4 TIMES DAILY NEEDED ibuprofen 600 mg tablet TAKE 1 TABLET BY MOUTH 4 TIMES DAILY NEEDED completed ibupro fen 600 MG Oral Tablet [place] ([facility]) Insurance Providers Payer name Policy type / Coverage type Policy ID Covered democrat ID Covered democrat's relationship to munoz Policy [place]oz Plan Information BCBS GENERIC C [id number] Self WM [id number] [facility] COMM[facility]ITY [facility] [id number] SP [id number] [place] [id number] SP [id number] BCBS [place] PPO [id number] [place] [id number] [place] 020/520 [id number] SP [id number] [place] 020/520 [id number] SP [id number] [place] 020/520 [id number] BC[place] 306/[id number] SP [id number] BC/BS Of [place] Commercial [id number] Self EXCELLUS BCBS P [id number] S [id number] EXCELLUS BCBS P UNAVAILABLE [id number] S UNAV AILABLE [place] NO FAULT P [id number] S [id number] [facility] COMMUNITY PLAN [facility] [id number] SP [id number] Problems, Conditions, and Diagnoses Code Display Name Description Problem Type Effective Dates Data Source(s) 86125229 Depressive disorder Depressive Disorder Problem 1 12:00:00 AM EDT [place] ([facility]) [id number] Depressive disorder Depressive Disorder Problem 1 12:00:00 AM EDT [facility] ([facility]) [id number] Generalized anxiety disorder Generalized Anxiety Disor bill Problem 07/29/2021 12:00:00 AM EDT [place] ([facility]) 48317347 Generalized anxiety disorder Generalized Anxiety Disor bill Problem 07/29/2021 12:00:00 AM EDT [place] ([facility]) 94350378 Generalized anxiety disorder Generalized Anxiety Disor bill Problem 07/29/2021 12:00:00 AM EDT [place] ([facility]) 83837742 Generalized anxiety disorder Generalized Anxiety Disor bill Problem 07/29/2021 12:00:00 AM EDT [place] ([facility]) 33301566 Generalized anxiety disorder Generalized Anxiety Disor bill Problem 07/29/2021 12:00:00 AM EDT [place] ([facility]) [id number] Left side sciatica Left Side Sciatica Problem 05/07/2021 12:00:00 AM EDT [place] ([facility]) 91800200 Cyst of ovary Cyst of Ovary Problem 05/07/2021 12:00:00 AM EDT [place] ([facility]) 274615755 Gastroesophageal reflux disease Gastroesophageal Reflux Disease Problem 05/07/2021 12:00:00 AM EDT [facility] ([facility]) 943201319 Mild intermittent asthma Mild Intermittent Asthma Prob seth 05/07/2021 12:00:00 AM EDT [place] ([facility]) 333229352 Seasonal allergy Seasonal Allergy Problem 05/07/2021 12 :00:00 AM EDT [place] ([facility]) 32128795 Anxiety Anxiety Problem 05/07/2021 12:00:00 AM ED T [place] ([facility]) 83352142 Vitamin D deficiency Vitamin D Deficiency Problem 05/07/2021 12:00:00 AM EDT [place] ([facility]) [id number] Left side sciatica Left Side Sciatica Problem 05/07/2021 12:00:00 AM EDT [facility] ([facility]) 44996634 Cyst of ovary Cyst of Ovary Problem 05/07/2021 12:00:00 AM EDT [place] ([facility]) 015160405 Gastroesophageal reflux disease Gastroesophageal Reflux Disease Problem 05/07/2021 12:00:00 AM EDT [place] ([facility]) 241121410 Mild intermittent asthma Mild Intermittent Asthma Prob seth 05/07/2021 12:00:00 AM EDT [place] ([facility]) 827180576 Seasonal allergy Seasonal Allergy Problem 05/07/2021 12 :00:00 AM EDT [place] ([facility]) 53117270 Anxiety Anxiety Problem 05/07/2021 12:00:00 AM ED T [place] ([facility]) 27145956 Vitamin D deficiency Vitamin D Deficiency Problem 05/07/2021 12:00:00 AM EDT [place] ([facility]) [id number] Left side sciatica Left Side Sciatica Problem 05/07/2021 12:00:00 AM EDT [facility] ([facility]) 06656150 Cyst of ovary Cyst of Ovary Problem 05/07/2021 12:00:00 AM EDT [place] ([facility]) 476924022 Gastroesophageal reflux disease Gastroesophageal Reflux Disease Problem 05/07/2021 12:00:00 AM EDT [place] ([facility]) 283698462 Mild intermittent asthma Mild Intermittent Asthma Prob seth 05/07/2021 12:00:00 AM EDT [place] ([facility]) 982470051 Seasonal allergy Seasonal Allergy Problem 05/07/2021 12 :00:00 AM EDT [place] ([facility]) 16399200 Anxiety Anxiety Problem 05/07/2021 12:00:00 AM ED T [place] ([facility]) 11279589 Vitamin D deficiency Vitamin D Deficiency Problem 05/07/2021 12:00:00 AM EDT [place] ([facility]) [id number] Left side sciatica Left Side Sciatica Problem 05/07/2021 12:00:00 AM EDT [place] ([facility]) 76387171 Cyst of ovary Cyst of Ovary Problem 05/07/2021 12:00:00 AM EDT [place] ([facility]) 498291176 Gastroesophageal reflux disease Gastroesophageal Reflux Disease Problem 05/07/2021 12:00:00 AM EDT [place] ([facility]) 420605159 Mild intermittent asthma Mild Intermittent Asthma Prob seth 05/07/2021 12:00:00 AM EDT [place] ([facility]) 096491551 Seasonal allergy Seasonal Allergy Problem 05/07/2021 12 :00:00 AM EDT [place] ([facility]) 31071795 Anxiety Anxiety Problem 05/07/2021 12:00:00 AM ED T [place] ([facility]) 46573290 Vitamin D deficiency Vitamin D Deficiency Problem 05/07/2021 12:00:00 AM EDT [place] ([facility]) [id number] Left side sciatica Left Side Sciatica Problem 05/07/2021 12:00:00 AM EDT [place] ([facility]) 18999364 Cyst of ovary Cyst of Ovary Problem 05/07/2021 12:00:00 AM EDT [place] ([facility]) 037936620 Gastroesophageal reflux disease Gastroesophageal Reflux Disease Problem 05/07/2021 12:00:00 AM EDT [place] ([facility]) 928029492 Mild intermittent asthma Mild Intermittent Asthma Prob seth 05/07/2021 12:00:00 AM EDT [place] ([facility]) 476476280 Seasonal allergy Seasonal Allergy Problem 05/07/2021 12 :00:00 AM EDT [place] ([facility]) 30397349 Anxiety Anxiety Problem 05/07/2021 12:00:00 AM ED T [place] ([facility]) 83605496 Vitamin D deficiency Vitamin D Deficiency Problem 05/07/2021 12:00:00 AM EDT [place] ([facility]) [id number] Left side sciatica Left Side Sciatica Problem 05/07/2021 12:00:00 AM EDT [place] ([facility]) 45927974 Cyst of ovary Cyst of Ovary Problem 05/07/2021 12:00:00 AM EDT [place] ([facility]) 976108388 Gastroesophageal reflux disease Gastroesophageal Reflux Disease Problem 05/07/2021 12:00:00 AM EDT [place] ([facility]) 520358758 Mild intermittent asthma Mild Intermittent Asthma Prob seth 05/07/2021 12:00:00 AM EDT [place] ([facility]) 649316314 Seasonal allergy Seasonal Allergy Problem 05/07/2021 12 :00:00 AM EDT [place] ([facility]) 40331397 Anxiety Anxiety Problem 05/07/2021 12:00:00 AM ED T [place] ([facility]) 80579629 Vitamin D deficiency Vitamin D Deficiency Problem 05/07/2021 12:00:00 AM EDT [place] ([facility]) [id number] Left side sciatica Left Side Sciatica Problem 05/07/2021 12:00:00 AM EDT [place] ([facility]) 51804958 Cyst of ovary Cyst of Ovary Problem 05/07/2021 12:00:00 AM EDT [place] ([facility]) 374186370 Gastroesophageal reflux disease Gastroesophageal Reflux Disease Problem 05/07/2021 12:00:00 AM EDT [place] ([facility]) 758034833 Mild intermittent asthma Mild Intermittent Asthma Prob seth 05/07/2021 12:00:00 AM EDT [place] ([facility]) 379522899 Seasonal allergy Seasonal Allergy Problem 05/07/2021 12 :00:00 AM EDT [place] ([facility]) 32190126 Anxiety Anxiety Problem 05/07/2021 12:00:00 AM ED T [place] ([facility]) 34545192 Vitamin D deficiency Vitamin D Deficiency Problem 05/07/2021 12:00:00 AM EDT [place] ([facility]) Surgeries/Procedures No Information Results ID Date Data Source [id number] 06/25/2021 11:56:00 AM EDT [facility]) Name Value Range Interpretation Code Description Data Genna rce(s) Supporting Document(s) sars-cov-2 negative negative Sars-cov-2 [facility]) ID Date Data Source [id number] 06/25/2021 11:56:00 AM EDT [facility]) Name Value Range Interpretation Code Description Data Genna rce(s) Supporting Document(s) sars-cov-2 negative negative Sars-cov-2 [facility]) ID Date Data Source [id number] 06/25/2021 11:56:00 AM EDT [facility]) Name Value Range Interpretation Code Description Data Genna rce(s) Supporting Document(s) sars-cov-2 negative negative Sars-cov-2 [facility]) ID Date Data Source [id number] 06/25/2021 11:56:00 AM EDT [facility]) Name Value Range Interpretation Code Description Data Genna rce(s) Supporting Document(s) sars-cov-2 negative negative Sars-cov-2 [facility]) ID Date Data Source [id number] 06/25/2021 11:56:00 AM EDT [facility]) Name Value Range Interpretation Code Description Data Genna rce(s) Supporting Document(s) sars-cov-2 negative negative Sars-cov-2 [facility]) ID Date Data Source [id number] 06/09/2021 12:56:00 PM EDT [facility]) Name Value Range Interpretation Code Description Data Genna rce(s) Supporting Document(s) total 25(oh) vitamin D 26.6 NG/mL 30.0-100.0 Below low normal T otal 25(Oh) Vitamin D [facility]) ID Date Data Source [id number] 06/09/2021 12:56:00 PM EDT [facility]) Name Value Range Interpretation Code Description Data Genna rce(s) Supporting Document(s) total 25(oh) vitamin D 26.6 NG/mL 30.0-100.0 Below low normal T otal 25(Oh) Vitamin D [facility]) ID Date Data Source [id number] 06/09/2021 12:56:00 PM EDT [facility]) Name Value Range Interpretation Code Description Data Genna rce(s) Supporting Document(s) total 25(oh) vitamin D 26.6 NG/mL 30.0-100.0 Below low normal T otal 25(Oh) Vitamin D [facility]) ID Date Data Source [id number] 06/09/2021 12:56:00 PM EDT [place] ([facility]) Name Value Range Interpretation Code Description Data Genna rce(s) Supporting Document(s) total 25(oh) vitamin D 26.6 NG/mL 30.0-100.0 Below low normal T otal 25(Oh) Vitamin D [place] ([facility]) ID Date Data Source [id number] 06/09/2021 12:56:00 PM EDT [place] ([facility]) Name Value Range Interpretation Code Description Data Genna rce(s) Supporting Document(s) total 25(oh) vitamin D 26.6 NG/mL 30.0-100.0 Below low normal T otal 25(Oh) Vitamin D [place] ([facility]) Procedure Social History No Information Vital Signs ID Date Data Source UNK Name Value Range Interpretation Code Description Data Source(s) Diastolic blood pressure 76 mm[Hg] 76 mm[Hg] [place] ([facility]) Body height 67 [in_i] 67 [in_i] [place] ([facility]) Body mass index (BMI) [Ratio] 27.6 kg/m2 27.6 k g/m2 [place] ([facility]) Systolic blood pressure 124 mm[Hg] 124 mm[Hg] A [facility] ([facility]) Body weight 2824 [oz_av] 2824 [oz_av] [facility] ([facility]) Diastolic blood pressure 76 mm[Hg] 76 mm[Hg] [place] ([facility]) Body height 67 [in_i] 67 [in_i] [place] ([facility]) Body mass index (BMI) [Ratio] 27.6 kg/m2 27.6 k g/m2 [place] ([facility]) Systolic blood pressure 124 mm[Hg] 124 mm[Hg] A [facility] ([facility]) Body weight 2824 [oz_av] 2824 [oz_av] [place] ([facility]) Body height 67 [in_i] 67 [in_i] [place] ([facility]) Diastolic blood pressure 76 mm[Hg] 76 mm[Hg] [place] ([facility]) Body height 67 [in_i] 67 [in_i] [place] ([facility]) Body mass index (BMI) [Ratio] 27.6 kg/m2 27.6 k g/m2 [place] ([facility]) Systolic blood pressure 124 mm[Hg] 124 mm[Hg] A [facility] ([facility]) Body weight 2824 [oz_av] 2824 [oz_av] [place] ([facility]) Diastolic blood pressure 76 mm[Hg] 76 mm[Hg] [place] ([facility]) Body mass index (BMI) [Ratio] 27.6 kg/m2 27.6 k g/m2 [place] ([facility]) Systolic blood pressure 124 mm[Hg] 124 mm[Hg] A [facility] ([facility]) Body weight 2824 [oz_av] 2824 [oz_av] [facility] ([facility]) Diastolic blood pressure 76 mm[Hg] 76 mm[Hg] [facility] ([facility]) Diastolic blood pressure 76 mm[Hg] 76 mm[Hg] [facility] ([facility]) Body height 67 [in_i] 67 [in_i] [facility] ([facility]) Body mass index (BMI) [Ratio] 27.6 kg/m2 27.6 k g/m2 [facility] ([facility]) Body height 67 [in_i] 67 [in_i] [place] ([facility]) Systolic blood pressure 124 mm[Hg] 124 mm[Hg] A [place] ([facility]) Body weight 2824 [oz_av] 2824 [oz_av] [facility] ([facility]) Body mass index (BMI) [Ratio] 27.6 kg/m2 27.6 k g/m2 [facility] ([facility]) Systolic blood pressure 124 mm[Hg] 124 mm[Hg] A [facility] ([facility]) Diastolic blood pressure 76 mm[Hg] 76 mm[Hg] [facility] ([facility]) Body height 67 [in_i] 67 [in_i] [place] ([facility]) Body mass index (BMI) [Ratio] 27.6 kg/m2 27.6 k g/m2 [facility] ([facility]) Systolic blood pressure 124 mm[Hg] 124 mm[Hg] A [place] ([facility]) Body weight 2824 [oz_av] 2824 [oz_av] [facility] ([facility]) Body weight 2824 [oz_av] 2824 [oz_av] [facility] ([facility]) Patient Treatment Plan of Care Planned Activity Planned Date Details Description Data Source (s) Ibuprofen 600 MG Oral Tablet [place] ([facility]) Acetaminophen 325 MG / Hydrocodone Bitartrate 5 MG Oral Tablet [place] ([facility]) chlorhexidine gluconate 1.2 MG/ML Mouthwash [place] ([facility]) Amoxicillin 500 MG Oral Capsule [place] ([facility] Ibuprofen 600 MG Oral Tablet [place] ([facility] Acetaminophen 325 MG / Hydrocodone Bitartrate 5 MG Oral Tablet [place] ([facility]) chlorhexidine gluconate 1.2 MG/ML Mouthwash [place] ([facility]) Amoxicillin 500 MG Oral Capsule [place] ([facility]) Ibuprofen 600 MG Oral Tablet [place] ([facility]) Acetaminophen 325 MG / Hydrocodone Bitartrate 5 MG Oral Tablet [place] ([facility]) chlorhexidine gluconate 1.2 MG/ML Mouthwash [place] ([facility]) Amoxicillin 500 MG Oral Capsule [place] ([facility] Ibuprofen 600 MG Oral Tablet [place] ([facility]) Acetaminophen 325 MG / Hydrocodone Bitartrate 5 MG Oral Tablet [place] ([facility]) chlorhexidine gluconate 1.2 MG/ML Mouthwash [place] ([facility]) Amoxicillin 500 MG Oral Capsule [place] ([facility] Ibuprofen 600 MG Oral Tablet [place] ([facility]) Acetaminophen 325 MG / Hydrocodone Bitartrate 5 MG Oral Tablet [place] ([facility]) chlorhexidine gluconate 1.2 MG/ML Mouthwash [place] ([facility]) Amoxicillin 500 MG Oral Capsule [place] ([facility] Ibuprofen 600 MG Oral Tablet [place] ([facility] Acetaminophen 325 MG / Hydrocodone Bitartrate 5 MG Oral Tablet [place] ([facility]) chlorhexidine gluconate 1.2 MG/ML Mouthwash [place] ([facility]) Amoxicillin 500 MG Oral Capsule [place] ([facility]) Ibuprofen 600 MG Oral Tablet [place] ([facility]) Acetaminophen 325 MG / Hydrocodone Bitartrate 5 MG Oral Tablet [place] ([facility]) chlorhexidine gluconate 1.2 MG/ML Mouthwash [place] ([facility]) Amoxicillin 500 MG Oral Capsule [facility] ([facility])
[2021-09-21] MEDS ORDERED: ceFAZolin SOD 2 GM in IV 1 EA IV ONE (05:50)
[2021-09-21] MEDS ORDERED: BICITRA 30ML SOLN UDC PO ONE (05:50)
[2021-09-21] MEDS ORDERED: LR 1,000 ML IV SCH (05:50)
[2021-09-21] MEDS ORDERED: LR 800 ML IV ONE (05:50)
[2021-09-21 06:42] LABS: HEMATOCRIT 34.8 % (36.0-47.0); HEMOGLOBIN 11.6 g/dl (12.0-15.5); MEAN CORPUSCULAR HEMOGLOBIN 28.4 pg (27.0-33.0); MEAN CORPUSCULAR HGB CONC 33.3 g/dl (32.0-36.5); MEAN CORPUSCULAR VOLUME 85.1 fl (80.0-96.0); PLATELET COUNT, AUTOMATED 276 10^3/uL (150-450); RED BLOOD COUNT 4.09 10^6/uL (4.00-5.40); WHITE BLOOD COUNT 11.8 10^3/uL (4.0-10.0)
[2021-09-21] MEDS ORDERED: diphenhydrAMINE 50MG/ML VIAL (J1200) IV PRN (07:52)
[2021-09-21] MEDS ORDERED: NALOXONE INJ 0.4MG/1ML VIAL (J2310 PER 1MG) IV PRN ×2 (07:52)
[2021-09-21] MEDS ORDERED: NALBUPHINE HCL 10 MG/ML AMP (J2300) IV PRN ×2 (07:52→09:25)
[2021-09-21] MEDS ORDERED: ONDANSETRON 4MG/2ML VIAL IV PRN ×2 (07:52→09:25)
[2021-09-21] MEDS ORDERED: METOCLOPRAMIDE INJ 10MG/2ML VIAL (J2765 PER 1) IV PRN (07:52)
[2021-09-21] MEDS ORDERED: MORPHINE PRES-FREE INJ 10 MG/10 ML VIAL (J2274) As Ordered ONE (07:56)
[2021-09-21] MEDS ORDERED: OXYTOCIN INJ 10 UNITS/ML VIAL (J2590) As Ordered ONE (07:56)
[2021-09-21] MEDS ORDERED: ONDANSETRON 4MG/2ML VIAL As Ordered ONE (08:10)
[2021-09-21] MEDS ORDERED: MEASLES,MUMPS,RUBELLA VACCINE INJ (MMR-II) (90707) SC SCH ×2 (08:55)
[2021-09-21] MEDS ORDERED: RHOGAM 300 MCG (1500 IU) INJ (J2790) IM SCH (08:55)
[2021-09-21] MEDS ORDERED: SIMETHICONE 80MG CHEW TAB PO PRN ×2 (08:55)
[2021-09-21] MEDS ORDERED: OXYTOCIN DRIP 30 UNITS in IV 1 EA IV SCH (08:55)
[2021-09-21] MEDS: PRENATAL VITAMINS CHEWABLE TABLET PO SCH (09:00)
[2021-09-21] MEDS ORDERED: PERCOCET 5MG/325MG TAB PO PRN (09:00)
--- NOTE | 2021-09-21 09:01 | ROOPDOC ---
[facility] Report Of Operation Report of Operation DATE OF PROCEDURE: 09/21/21 Report of operation Preoperative diagnosis: 39 weeks gestation, prior severe vaginal laceration Postoperative diagnosis: Same Procedure: Primary low transverse section and bilateral tubal ligation. Surgeon: Sherrie Matos M.D. Asst.: Moon Arshad CNM EBL: 500 ml. Urine output: 100 mL's. Findings: 6 lbs. 6 oz. female infant, 's 9 and 9 g normal uterus, fallopian tubes, ovaries. Operative summary: Patient taken to the operating room where spinal anesthesia was induced. She was prepped and draped in a sterile fashion in the supine position. A Naidu catheter was placed. A Pfannenstiel skin incision was made with scalpel. Fascia was incised and extended bilaterally. The fascia was dissected off the rectus muscles. The peritoneal cavity was entered. A Mobius retractor was placed. A bladder flap was created. A curvilinear incision was made in lower uterine segment until Clear fluid was noted. The incision was extended manually. The was delivered from the vertex position without difficulty. Cord was doubly clamped and cut. The was handed waiting nurses. . The placenta was expressed. Uterus was closed with O-Vicryl in a running locked fashion. A second imbricating layer of Vicryl was placed. Attention was turned to the fallopian tubes. A [place] clamp was used to grasp the fallopian tubes at the midportion.. A window was created in the broad ligament free tie of 2-0 chromic was placed around the segment of tube on either side of the clamp. A Segment of tube was excised bilaterally and sent to pathology. Peritoneum was closed with 2-0 Vicryl a running fashion. Fascia was closed with 0 Vicryl in running fashion. Skin was closed 4-0 Monocryl subcuticular sutures. Sponge, instrument and needle counts were correct. Moon Arshad CNM, assisted with all aspects of the procedure. She helped close each layer of the incision and deliver the fetus. . SHERRIE MATOS MD Sep 21, 2021 09:01
[2021-09-21] MEDS ORDERED: HYDROMORPHONE HCL 0.5 MG/ 0.5 ML SYRINGE (J1170 PER 1) IV PRN (09:25)
[2021-09-21] MEDS ORDERED: fentaNYL 100 MCG/2 ML INJECTION (J3010) IV PRN (09:25)
[2021-09-21] MEDS ORDERED: oxyCODONE 5MG TAB PO PRN (09:25)
[2021-09-21] MEDS ORDERED: MEPERIDINE INJ 25 MG/ML VIAL (J2175) IV PRN (09:25)
[2021-09-21] MEDS ORDERED: KETOROLAC 30 MG/ML 1ML VIAL As Ordered ONE (09:38)
[2021-09-21] MEDS ORDERED: OXYTOCIN 30 UNITS IN 0.9% NaCl 500ML IV BAG (J2590) As Ordered ONE (09:38)
[2021-09-21] MEDS: KETOROLAC 30 MG/ML 1ML VIAL IV SCH ×3 (09:41→22:19)
[2021-09-21] MEDS: LR 1,000 ML IV SCH ×2 (14:12→16:55)
[2021-09-22] MEDS: LR 1,000 ML IV SCH (00:55)
[2021-09-22 02:00] VITALS: BP 126/60
[2021-09-22] MEDS: KETOROLAC 30 MG/ML 1ML VIAL IV SCH (04:08)
[2021-09-22 06:00] VITALS: BP 118/69
[2021-09-22 10:00] VITALS: BP 136/66
[2021-09-22] MEDS: PRENATAL VITAMINS CHEWABLE TABLET PO SCH (10:32)
--- NOTE | 2021-09-22 11:08 | IPNPDOC ---
Progress Note Date of Service: Sep 22, 2021 Day#: 1 Progress Note SUBJECT: Cecy is a 31-year-old female who had a primary section due to a difficult delivery and perineal laceration with her last delivery. She reports she is doing well and her pain is managed. She refuses any narcotics. Reports she is eating a regular diet without any issues, ambulating without dizziness and without any issues. OBJECTIVE: VITAL SIGNS and labs: see below. Alert and oriented times three. OOB coming back from the bathroom. Respiratory rate is regular and patient breathing comfortable on room air. Abdomen: Fundus firm at U. Dressing intact without and drainage. Minimal lochia. ASSESSMENT: Day 1 postoperative PLAN: 1. Continue supportive nursing care. 2. Patient to shower and ambulate. 3. Anticipate discharge to home tomorrow. VS, I&O, 24H, Fishbone Vital Signs/I&O Vital Signs Date Time Temp Pulse Resp B/P (MAP) Pulse Ox O2 Delivery O2 Flow Rate FiO2 09/22/21 10:00 97.4 93 19 136/66 (89) 98 Room Air I&O- Last 24 Hours up to 6 AM 09/22/21 06:00 Intake Total 3695 ml Output Total 2375 ml Balance 1320 ml Laboratory Data CBC/BMP Item Value Date Time White Blood Count 12.2 10^3/uL H 09/22/21 1050 Red Blood Count 3.88 10^6/uL L 09/22/21 1050 Hemoglobin 11.0 g/dl L 09/22/21 1050 Hematocrit 33.6 % L 09/22/21 1050 Mean Corpuscular Volume 86.6 fl 09/22/21 1050 Mean Corpuscular Hemoglobin 28.4 pg 09/22/21 1050 Mean Corpuscular Hemoglobin Concent 32.7 g/dl 09/22/21 1050 Red Cell Distribution Width 12.9 % 09/22/21 1050 Platelet Count 260 10^3/uL 09/22/21 1050 [facility] [place] CNM Sep 22, 2021 11:08
[2021-09-22 11:16] LABS: HEMATOCRIT 33.6 % (36.0-47.0); MEAN CORPUSCULAR HEMOGLOBIN 28.4 pg (27.0-33.0); MEAN CORPUSCULAR HGB CONC 32.7 g/dl (32.0-36.5); MEAN CORPUSCULAR VOLUME 86.6 fl (80.0-96.0); PLATELET COUNT, AUTOMATED 260 10^3/uL (150-450); RED BLOOD COUNT 3.88 10^6/uL (4.00-5.40); WHITE BLOOD COUNT 12.2 10^3/uL (4.0-10.0)
[2021-09-22] MEDS: IBUPROFEN 800 MG TAB PO SCH ×2 (11:55→20:05)
[2021-09-22 14:00] VITALS: BP 124/69
[2021-09-22] MEDS: ACETAMINOPHEN 500 MG TAB PO PRN (17:14)
[2021-09-22 18:00] VITALS: BP 133/79
[2021-09-22 21:56] VITALS: BP 136/78
[2021-09-23] MEDS: ACETAMINOPHEN 500 MG TAB PO PRN ×2 (01:29→07:39)
[2021-09-23 02:21] VITALS: BP 136/79
[2021-09-23] MEDS: IBUPROFEN 800 MG TAB PO SCH ×2 (03:44→12:23)
[2021-09-23 06:12] VITALS: BP 139/83
[2021-09-23] MEDS: PRENATAL VITAMINS CHEWABLE TABLET PO SCH (09:29)
[2021-09-23] MEDS ORDERED: ACET-683 PO (10:47)
[2021-09-23] MEDS ORDERED: IBUP80TA PO (10:47)
--- NOTE | 2021-09-23 10:53 | DS.PDOC ---
Discharge Summary General Date of Admission Sep 21, 2021 at 05:32 Date of Discharge 2020 Discharge Summary PROCEDURES PERFORMED DURING STAY: section and tubal ligation. ADMITTING DIAGNOSES: 1. 39 weeks, prior obstetrical trauma. DISCHARGE DIAGNOSES: 1. delivered. COMPLICATIONS/CHIEF COMPLAINT: Prior Severe Vaginal Laceration, Satisfied Fertility. HISTORY OF PRESENT ILLNESS: 31-year-old 2 para 1 female at 39 weeks gestation presents for primary section tubal sterilization. The indication is prior severe obstetrical trauma.. HOSPITAL COURSE: 31-year-old 2 para 1 female at 39 weeks gestation presents for primary section tubal sterilization. The indication is prior severe obstetrical trauma. On September 21, 2021 the patient went to primary section bilateral tubal sterilization for a viable infant. There were no complications. Her blood loss was average. Her postoperative course was unremarkable. She had adequate return of bladder bowel function. She was deemed stable for discharge on postop day #2. DISCHARGE MEDICATIONS: Please see below. ALLERGIES: Please see below. PHYSICAL EXAMINATION ON DISCHARGE: VITAL SIGNS: Please see below. GENERAL: NAD HEENT: NCAT CARDIOVASCULAR EXAMINATION: RRR RESPIRATORY EXAMINATION: CTA ABDOMINAL EXAMINATION: Nontender, dressing clean dry and intact EXTREMITIES: Nontender LABORATORY DATA: Please see below. PROGNOSIS: Good ACTIVITY: As tolerated. DIET: Regular DISCHARGE PLAN: Home DISCHARGE INSTRUCTIONS: 1. Discharge home today 2. Instructions reviewed. DISCHARGE CONDITION: Stable. TIME SPENT ON DISCHARGE: 10 minutes. Vital Signs/I&Os Vital Signs Date Time Temp Pulse Resp B/P (MAP) Pulse Ox O2 Delivery O2 Flow Rate FiO2 09/23/21 06:12 98.0 90 18 139/83 (101) 99 Room Air Laboratory Data Labs 24H Laboratory Tests 2 09/22/21 10:50: Nucleated Red Blood Cells % (auto) 0.0 CBC/BMP Laboratory Tests 09/22/21 10:50 Discharge Medications Scheduled Cholecalciferol (Vitamin D3) (Vitamin D3) 50 Mcg Capsule, 50 MCG PO DAILY, (Reported) Ibuprofen (Ibuprofen) 800 Mg Tablet, 800 MG PO Q8H No122/Iron/Folic Acid ( Multi Tablet) 1 Each Tablet, 1 TAB PO DAILY, (Reported) Scheduled PRN Acetaminophen (Acetaminophen) 500 Mg Tablet, 1,000 MG PO Q6HP PRN for MODERATE PAIN (PS 5-7) Albuterol Sulfate (Proair Hfa) 8.5 Gm Hfa.aer.ad, 2 PUFF INH Q4-6HP PRN for RESPIRATORY DISTRESS, (Reported) Allergies Coded Allergies: doxycycline (Verified Allergy, Unknown, 09/16/21) SHERRIE MATOS MD Sep 23, 2021 10:53
== END 2021-09-23 12:30 | disposition home or self-care (01) | DRG 540 ==
LOC: M LDI 05:32 → M OBS 11:17
PROVIDERS: ADMIT Specialist; ATTEND Specialist
PROC: 0UB70ZZ Excision of Bilateral Fallopian Tubes, Open Approach (ICD-10-PCS; 2021-09-21)
PROC: 10D00Z1 Extraction of Products of Conception, Low, Open Approach (ICD-10-PCS; principal; 2021-09-21 07:30)
DX: O99.892 Other specified diseases and conditions complicating childbirth (principal); Z30.2 Encounter for sterilization; Z3A.39 39 weeks gestation of pregnancy; Z37.0 Single live birth; Z87.59 Personal history of other complications of pregnancy, childbirth and the puerperium

== ENCOUNTER → 2022-03-16 | Outpatient (REF) | payer OTHER, MEDICAID ==
[~2022-03-16] MED LIST changes: +ACET-683 PO; +IBUP80TA PO
== END ==
LOC: M LAB REF 17:22
PROVIDERS: ATTEND Obstetrics & Gynecology
DX: Z01.419 Encounter for gynecological examination (general) (routine) without abnormal findings (principal)

== ENCOUNTER → 2022-03-23 | Outpatient (CLI) | payer OTHER | LOC: M WHC 14:40 | PROVIDERS: ATTEND Pediatrics | DX: R59.0 Localized enlarged lymph nodes (principal) ==

== ENCOUNTER → 2023-06-28 | Outpatient (CLI) | payer OTHER | LOC: M WHC 09:27 | PROVIDERS: ATTEND Nurse Practitioner Family | DX: N63.10 Unspecified lump in the right breast, unspecified quadrant (principal) ==

== ENCOUNTER → 2023-08-10 | Outpatient (REF) | payer MEDICAID, OTHER | LOC: M SFHCWAGY 13:43 | PROVIDERS: ATTEND Specialist | DX: Z01.419 Encounter for gynecological examination (general) (routine) without abnormal findings (principal) ==

== ENCOUNTER → 2024-06-12 | Outpatient (CLI) | payer OTHER ==
[2024-06-12 15:09] LABS: PROGESTERONE 6.97 NG/ML
[2024-06-12 15:10] LABS: FOLLICLE STIMULATING HORMONE 5.5 mIU/ML; LUTEINIZING HORMONE 6.1 mIU/ML; PROLACTIN 2.69 NG/ML
[2024-06-12 15:11] LABS: FREE T4 1.29 NG/DL (0.89-1.76)
[2024-06-12 15:12] LABS: THYROID STIMULATING HORMONE 2.213 uIU/ML (0.55-4.78)
== END ==
LOC: M PLALAB 11:28
PROVIDERS: ATTEND Specialist
DX: N92.6 Irregular menstruation, unspecified (principal)

== ENCOUNTER → 2024-06-17 | Outpatient (REF) | payer OTHER, MEDICAID | LOC: M SFHCCLAY 12:22 | PROVIDERS: ATTEND Specialist | DX: N92.6 Irregular menstruation, unspecified (principal) ==

== ENCOUNTER → 2024-08-21 | Outpatient (CLI) | payer OTHER | LOC: M WHC 14:12 | PROVIDERS: ATTEND Specialist | DX: N63.0 Unspecified lump in unspecified breast (principal) ==

== ENCOUNTER → 2024-08-21 | Outpatient (CLI) | payer OTHER | LOC: M WHC 13:50 | PROVIDERS: ATTEND Specialist | DX: Z12.31 Encounter for screening mammogram for malignant neoplasm of breast (principal) ==

== ENCOUNTER → 2024-08-30 | Outpatient (REF) | payer MEDICAID, OTHER ==
[2024-09-03 15:03] LABS: HPV APTIMA Not Detected (Not Detected)
== END ==
LOC: M SFHCWAGY 17:40
PROVIDERS: ATTEND Specialist
DX: Z12.4 Encounter for screening for malignant neoplasm of cervix (principal)